=== PATIENT | male | born 1950 | race Caucasian/White ===

== ENCOUNTER 2016-11-27 08:13 | Emergency (ER) | payer OTHER, MEDICARE ==
[2016-11-27 08:48] VITALS: RESP 16
--- NOTE | 2016-11-27 09:01 | EDPHY ---
H & P Stated Complaint: Dizziness Time Seen by Provider: 11/27/16 08:44 HPI/ROS: Chief Complaint: Dizzy, lightheaded HPI: 66-year-old male presenting with the onset of lightheaded this morning. Patient states he got up this morning with some pain in his right ankle consistent with his prior gout attacks. He took indomethacin. About an hour later he started feeling lightheaded. He has never had this sensation before. No fainting or syncope. Room is not spinning. No nausea or vomiting. No chest pain or shortness of breath. Patient states that he usually takes his indomethacin at night because sometimes makes him sleepy. No fevers or chills. He has otherwise been in his normal state of health. Recently followed up with primary care doctor and had normal testing. CT scan of his chest because of pulmonary nodules with no acute findings. Ultrasound of his abdomen showed a borderline aorta and some gallstones otherwise negative. ROS: 10 point Review of Systems is negative except as noted in the HPI. PMH: Pulmonary nodules, gallstones Social History: Positive smoking, no alcohol, no recreational drug use Family History: non-contributory Physical Exam: Gen: Awake, Alert, No Distress HEENT: Nose: no rhinorrhea Eyes: PERRLA, EOMI Mouth: Moist mucosa Neck: Supple, no JVD Chest: nontender, lungs clear to auscultation Heart: S1, S2 normal, no murmur Abd: Soft, non-tender, no guarding Back: no CVA tenderness, no midline tenderness Ext: no edema, non-tender Skin: no rash Neuro: CN II-XII intact, Sensation grossly intact, Strength 5/5 in bilateral upper and lower extremities, normal cerebellar findings. - Medical/Surgical History Hx Asthma: No Hx Chronic Respiratory Disease: No Hx Diabetes: No Hx Cardiac Disease: No Hx Renal Disease: No Hx Cirrhosis: No Hx Alcoholism: No Hx HIV/AIDS: No Hx Splenectomy or Spleen Trauma: No - Social History Smoking Status: Current every day smoker Constitutional: Initial Vital Signs Temperature (C) 36.8 C 11/27/16 08:44 Heart Rate 72 11/27/16 08:44 Respiratory Rate 16 11/27/16 08:44 Blood Pressure 157/85 H 11/27/16 08:44 O2 Sat (%) 93 11/27/16 08:44 O2 Delivery Mode Room Air Allergies/Adverse Reactions: No Known Allergies Allergy (Unverified 08/18/14 11:47) Home Medications: Medication Instructions Recorded Hydrocodone/APAP [[place] 1 tab PO Q4 #12 tab 08/18/14325] Medical Decision Making - Diagnostics EKG Interpretation: ECG time 9:09 a.m.: Ms. rhythm with a rate of 61, normal axis, normal intervals , no acute ST changes. Impression: Normal ECG. ED Course/Re-evaluation: Patient's work is normal. Patient had onset of some lightheadedness after taking indomethacin this morning. ECG is normal blood work is normal troponin is normal. Symptoms began well over 2 hours prior to presentation. No evidence of acute cardiac process. He is feeling improved. He is ambulating unassisted emergency department. Will discharge with follow-up with primary care physician. I have recommended he discontinue indomethacin and probably switch to and other nonsteroidal anti-inflammatory. - Data Points Laboratory Results: Laboratory Results 11/27/16 Unknown 11/27/16 Unknown 11/27/16 11/27/16 Unknown Unknown WBC 8.31 10^3/uL 10^3/uL (3.80-9.50) RBC 5.76 10^6/uL 10^6/uL (4.40-6.38) Hgb 16.4 g/dL g/dL (13.7-17.5) Hct 50.2 % % (40.0-51.0) MCV 87.2 fL fL (81.5-99.8) MCH 28.5 pg pg (27.9-34.1) MCHC 32.7 g/dL g/dL (32.4-36.7) RDW 15.0 % % (11.5-15.2) Plt Count 205 10^3/uL 10^3/uL (150-400) MPV 11.3 fL fL (8.7-11.7) Neut % (Auto) 58.5 % % (39.3-74.2) Lymph % (Auto) 33.6 % % (15.0-45.0) [place] % (Auto) 5.9 % % (4.5-13.0) Eos % (Auto) 1.0 % % (0.6-7.6) Baso % (Auto) 0.5 % % (0.3-1.7) Nucleat RBC Rel Count 0.0 % % (0.0-0.2) Absolute Neuts (auto) 4.87 10^3/uL 10^3/uL (1.70-6.50) Absolute Lymphs (auto) 2.79 10^3/uL 10^3/uL (1.00-3.00) Absolute Monos (auto) 0.49 10^3/uL 10^3/uL (0.30-0.80) Absolute Eos (auto) 0.08 10^3/uL 10^3/uL (0.03-0.40) Absolute Basos (auto) 0.04 10^3/uL 10^3/uL (0.02-0.10) Absolute Nucleated RBC 0.00 10^3/uL 10^3/uL (0-0.01) Immature Gran % 0.5 % % (0.0-1.1) Immature Gran # 0.04 10^3/uL 10^3/uL (0.00-0.10) Sodium 137 mEq/L mEq/L (134-144) Potassium 3.9 mEq/L mEq/L (3.5-5.2) Chloride 100 mEq/L mEq/L (97-110) Carbon Dioxide 24 mEq/l mEq/l (22-31) Anion Gap 13 mEq/L mEq/L (8-16) BUN 10 mg/dL mg/dL (7-23) Creatinine 0.8 mg/dL mg/dL (0.7-1.3) Estimated GFR > 60 Glucose 180 mg/dL H mg/dL (70-100) Calcium 9.4 mg/dL mg/dL (8.5-10.4) Troponin I < 0.012 ng/mL ng/mL (0.000-0.034) Departure - Departure Disposition: Home, Routine, Self-Care Clinical Impression: Lightheaded Condition: Good Instructions: Lightheadedness (ED) Additional Instructions: Discontinue the indomethacin. Follow up with your primary care physician in 2-3 days to discuss alternatives for this anti-inflammatory medication. Return to the emergency depart for increasing lightheadedness, fainting, chest pain, shortness of breath, or any other concerns. Referrals: Stan Velázquez MD [Medical Doctor] - As per Instructions
--- NOTE | 2016-11-27 09:10 | CPEKG ---
Heart Rate: 61 RR Interval: 984 P-R Interval: 216 QRSD Interval: 100 QT Interval: 432 QTC Interval: 435 P [place]: 60 QRS [place]: 81 T Wave [place]: 46 EKG Severity - OTHERWISE NORMAL ECG - EKG Impression: SINUS RHYTHM EKG Impression: ATRIAL PREMATURE COMPLEX EKG Impression: BORDERLINE RIGHT AXIS DEVIATION Electronically Signed By: Kapil Ching 27-Nov-2016 15:55:36
[2016-11-27 09:13] LABS: ANION GAP 13 mEq/L (8-16); CALCIUM 9.4 mg/dL (8.5-10.4); CARBON DIOXIDE 24 mEq/l (22-31); CHLORIDE 100 mEq/L (97-110); CREATININE 0.8 mg/dL (0.7-1.3); GLOMERULAR FILTRATION RATE > 60; GLUCOSE 180 mg/dL (70-100); POTASSIUM 3.9 mEq/L (3.5-5.2); SODIUM 137 mEq/L (134-144)
[2016-11-27 09:15] LABS: % IMMATURE GRANULYOCYTES 0.5 % (0.0-1.1); ABSOLUTE IMMATURE GRANULOCYTES 0.04 10^3/uL (0.00-0.10); ADD DIFF? NO; ADD MORPH? NO; ADD SCAN? NO; ATYPICAL LYMPHOCYTE FLAG 10 (0-99); FRAGMENT RBC FLAG 0 (0-99); HEMATOCRIT 50.2 % (40.0-51.0); HEMOGLOBIN 16.4 g/dL (13.7-17.5); LEFT SHIFT FLG 0 (0-99); LIPEMIA HEMOLYSIS FLAG 80 (0-99); MEAN CELL HEMOGLOBIN 28.5 pg (27.9-34.1); MEAN CELL HEMOGLOBIN CONCENTR. 32.7 g/dL (32.4-36.7); MEAN CELL VOLUME 87.2 fL (81.5-99.8); MEAN PLATELET VOLUME 11.3 fL (8.7-11.7); PLATELET CLUMPS FLAG 0 (0-99); PLATELET COUNT 205 10^3/uL (150-400); RED BLOOD CELL COUNT 5.76 10^6/uL (4.40-6.38)
[2016-11-27 09:24] LABS: TROPONIN I < 0.012 ng/mL (0.000-0.034)
[2016-11-27 10:43] VITALS: BP 154/89; PULSE 89; TEMP 98.6; O2SAT 95
== END 2016-11-27 10:50 | disposition home or self-care (01) ==
LOC: EDUNIT#
DX: R42 Dizziness and giddiness (principal); F17.200 Nicotine dependence, unspecified, uncomplicated